=== PATIENT | male | born 1995 | race Asian ===

== ENCOUNTER → 2017-02-05 | Outpatient (CLI) | payer BC ==
--- NOTE | 2017-02-05 11:02 | DIAGNOSTIC IMAGING REPORT ---
CERVICAL SPINE 4 OR 5 VIEWS CLINICAL HISTORY: Neck pain. History of prior trauma. COMPARISON STUDY: No previous studies for comparison. FINDINGS: The prevertebral soft tissues are normal. No fractures or subluxations are visualized. There is a cervical dextroscoliosis. IMPRESSION: Mild dextroscoliosis. No fractures or subluxations are visualized. Electronically signed by: Carlitos Holly M.D. 02/05/2017 11:01 AM Dictated Date/Time: 02/05/2017 11:00 AM
== END | disposition home or self-care (01) ==
LOC: C.RDSM 10:32
PROVIDERS: ATTEND Family Medicine
DX: M54.2 Cervicalgia (principal)

== ENCOUNTER 2018-02-09 05:52 | Inpatient (IN) | payer BC, OTHER ==
[2018-01-22 13:54] VITALS: Ht 180.3 cm; Wt 83.1 kg
[2018-02-09] VITALS (7 sets, daily range): BP systolic 122–147; BP diastolic 62–88; PULSE 51–70; TEMP 36.2–36.9; O2SAT 94–99
[~2018-02-09] VITALS: Ht 180.3 cm; Wt 83.1 kg
[~2018-02-09 05:52] MED LIST: FLUT0.15 INTNAS
[2018-02-09] MEDS ORDERED: DEXAMETHASONE SOD INJ 4 MG/ML VIAL IV SCH (06:00)
[2018-02-09] MEDS ORDERED: CLINDAMYCIN 600 MG/54 ML D5W IV SCH (06:00)
[2018-02-09] MEDS ORDERED: LACTATED RINGER'S 1000ML 1,000 ML IV SCH (06:00)
--- NOTE | 2018-02-09 06:06 | History & Physical Bridge Note ---
H&P Re-Evaluation Bridge Note: I have examined the patient, reviewed the History & Physical and in the interval since the performance of the History & Physical I have noted the following changes of clinical significance: No changes noted
[2018-02-09] MEDS ORDERED: OXYMETAZOLINE HCL 0.05% NA SPR 15 ML BTL ONE (06:54)
[2018-02-09] MEDS ORDERED: LIDOCAINE HCL 2% JELLY 30 ML TUBE ONE (06:55)
[2018-02-09] MEDS ORDERED: CHLORHEXIDINE GLUCONATE 0.12% 480 ML MT ONE (07:00)
[2018-02-09] MEDS ORDERED: SCOPOLAMINE 1.5 MG TDSY TD SCH (07:00)
[2018-02-09] MEDS ORDERED: BUPIVACAINE/EPINEPHRINE 0.5% 1:200,000 1.8 ML CARP ONE (07:01)
[2018-02-09] MEDS ORDERED: TRIAMCINOLONE ACET 0.1% OINT 15 GM TUBE ONE (07:01)
[2018-02-09] MEDS ORDERED: SCOPOLAMINE 1.5 MG TDSY TD ONE (07:02)
[2018-02-09] MEDS ORDERED: FENTANYL CITRATE INJ 50 MCG/1 ML 2 ML VIAL ONE ×2 (07:07→08:24)
[2018-02-09] MEDS ORDERED: MIDAZOLAM HCL 1 MG/ML 2ML VIAL ONE (07:07)
[2018-02-09] MEDS ORDERED: PROMETHAZINE HCL INJ 12.5 MG in SODIUM CHLORIDE 0.9% 50ML 50 ML IV PRN (07:15)
[2018-02-09] MEDS ORDERED: HYDROmorphone INJ 0.5 MG/0.5 ML SYR IV PRN (07:15)
[2018-02-09] MEDS ORDERED: FENTANYL CITRATE INJ 50 MCG/1 ML 2 ML VIAL IV PRN (07:15)
[2018-02-09] MEDS ORDERED: EpHEDrine SULFATE INJ 50 MG/ML AMP IV PRN (07:15)
[2018-02-09] MEDS ORDERED: ONDANSETRON INJ 2 MG/ML 2 ML VIAL IV PRN ×2 (07:15→09:15)
[2018-02-09] MEDS ORDERED: ATROPINE SULFATE 0.1 MG/ML 5ML SYR IV PRN (07:15)
[2018-02-09] MEDS ORDERED: LIDOCAINE 4% INH SOLN 4 ML BTL ONE (07:27)
[2018-02-09] MEDS ORDERED: HYDROmorphone INJ 2 MG/ML SYR/VIAL ONE (07:32)
[2018-02-09] MEDS ORDERED: LIDOCAINE HCL 2% 2 ML VIAL (20MG/ML) ONE (07:45)
[2018-02-09] MEDS ORDERED: ROCURONIUM BROMIDE 10 MG/ML 5 ML VIAL ONE (07:45)
[2018-02-09] MEDS ORDERED: ONDANSETRON INJ 2 MG/ML 2 ML VIAL ONE (07:45)
[2018-02-09] MEDS ORDERED: PROPOFOL IV EMULSION 10 MG/ML 20 ML VIAL ONE (07:45)
--- NOTE | 2018-02-09 09:09 | [facility] Operative Report ---
Operative Report Operative Date February 09, 2018. 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 Description of Procedure After intubation and a sterile prep and drape the oral cavity was suctioned. Local anesthesia administered. The typical upper buccal sulcus incision was made and the maxilla exposed. A LeFort I osteotomy was completed and downfractured. The maxilla was advanced and plated securly in its new position. Closure was completed with 3-0 vicryl in the hyacinth-nasal musculature and 4-0 gut in the mucosa. I attest to the content of the Intraoperative Record and any orders documented therein. Any exceptions are noted below.
[2018-02-09] MEDS ORDERED: ACETAMINOPHEN/HYDROCODONE ELIX 15 ML/CUP UDP PO PRN (09:15)
[2018-02-09] MEDS ORDERED: SODIUM CHLORIDE 0.65% NA SOLN 45 ML (OCEAN) PRN (09:15)
[2018-02-09] MEDS ORDERED: ACETAMINOPHEN SOLN 650MG/20.3 ML UDC PO PRN (09:15)
[2018-02-09] MEDS ORDERED: MoRPHine SULFATE 4 MG/ML 1 ML CARP\\VIAL IV PRN ×2 (09:15)
--- NOTE | 2018-02-09 09:17 | Discharge Instructions ---
Discharge Instructions Date of Service February 09, 2018. 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 Instructions / Follow-Up Instructions / Follow-Up Very soft diet, rinse mouth gently with salt water 3-4 times a day. Saline nasal spray as needed for nasal congestion. Blow nose very gently. OK to drive once off of prescription pain meds. Take post op meds as prescribed ( start Z nissa this evening, ibuprofen for pain, hydrocodone for increased pain - prescriptions already filled). Current Hospital Diet Patient's current hospital diet: Clear Liquid Diet Discharge Diet Recommended Diet: Full Liquid Diet Procedures Procedures Performed: Maxillary Lefort I Osteotomy Pending Studies Studies pending at discharge: no Medical Emergencies . Who to Call and When: Medical Emergencies: If at any time you feel your situation is an emergency, please call 911 immediately. . Non-Emergent Contact Non-Emergency issues call your: Surgeon Call Non-Emergent contact if: temperature is above 101, your pain is not controlled, wound has increased drainage, wound has increased redness, wound has increased pain Contact Dr. Diaz at the office [phone] or directly at [phone] Follow up appointment as scheduled. . "Provider Documentation" section prepared by Matthew Diaz. . [place] Drug Monitoring Program Search Results: no issues identified
--- NOTE | 2018-02-09 09:51 | OPERATIVE REPORT ---
DATE OF OPERATION: 02/09/2018 PREOPERATIVE DIAGNOSIS: Maxillary hypoplasia with resulting malocclusion. POSTOPERATIVE DIAGNOSIS: Same. PROCEDURE: LeFort I osteotomy for advancement with rigid internal fixation. SURGEON: Matthew Diaz DDS STICKER MACHINE OPERATOR: Steph Ochoa CNP ANESTHESIA: General nasal endotracheal intubation. ESTIMATED BLOOD LOSS: 150 mL. DRAINS: None. SPECIMENS: None. COMPLICATIONS: None. INDICATIONS: Brayden is a 22-year-old man I know well who has a developmental deformity of his maxilla resulting in a class 3 skeletal and dental malocclusion. This is a severe malocclusion resulting in difficulty eating and an excessive force on the structures of the temporomandibular joints. He has had a full skeletal workup as well as orthodontic management and is now ready to have definitive correction with LeFort I maxillary advancement. I have reviewed with him and his mother the indicated procedures, the alternatives, the risks and benefits and potential complications, and he has signed an informed consent. He has also had a routine preanesthesia evaluation. He is felt to be a good candidate for the surgery. DESCRIPTION OF PROCEDURE: Patient was taken to the operating room and placed supine on the operating room table. Routine anesthesia monitors were applied. Anesthesia was induced and endotracheal intubation was performed. The eyes were lubed and taped. The endotracheal tube was secured including a stitch at the columella and a sterile prep and drape was performed. A timeout was taken and then the oral cavity was entered. I irrigated it with chlorhexidine solution and used four 1.8 mL carpules of 0.5% Marcaine with 1:200,000 epinephrine as bilateral posterior superior alveolar nerve blocks and bilateral infraorbital nerve blocks. The typical upper buccal sulcus incision was then made with the needle tip electrocautery and the anterior maxilla was degloved. I placed 4 IMF screws between the premolars, one in each quadrant. We used a reciprocating saw to complete the Le Fort I osteotomy protecting the nasal mucosa. I then used curved osteotome to separate the pterygoid plates from the maxilla, a straight osteotome to separate the nasal septum from the crest of the maxilla, and a guarded osteotome to complete the osteotomies in the lateral nasal wall. The maxilla was then easily downfractured and areas of interfering bone were removed with the rongeurs. We then advanced the maxilla approximately 6 mm into the prefabricated surgical stent and used the IMF screws to wire him into that class 1 occlusion. With the maxilla stably affixed to the mandible in the right position, the mandible was rotated into a closed position ensuring that the condyle stayed seated in the fossa and ensured that there was good bone contact across the maxilla and then used four 2.0 Synthes plates and screws to fix the maxilla in its new position. The IMF was released and the patient's occlusion was verified. We then irrigated the wounds. I used a 3-0 Vicryl as piriform cinch suture, about a 10 mm V-Y advancement in the anterior labial mucosa, and then closed the upper buccal sulcus incision with 4-0 gut. The patient was suctioned free. Stomach was emptied with an orogastric tube and patient was turned over to anesthesia, extubated in the operating room, and transferred to the recovery area in stable condition. At the end of the procedure, all counts were correct. I attest to the content of the Intraoperative Record and any orders documented therein. Any exception s are noted below.
--- NOTE | 2018-02-09 10:13 | Anesthesiology Progress Note ---
Anesthesia Post Op Note Date & Time February 09, 2018 at 10:13 Vital Signs Pain Intensity: 0 Vital Signs Past 12 Hours Date Time Temp Pulse Resp B/P (MAP) Pulse Ox O2 Delivery O2 Flow Rate FiO2 02/09/18 10:00 60 12 143/69 93 Room Air 02/09/18 09:50 60 12 146/73 98 Oxymask 10 02/09/18 09:40 58 12 146/74 96 Oxymask 10 02/09/18 09:31 36 60 16 152/75 98 Oxymask 10 02/09/18 06:13 36.9 51 18 140/88 (105) 99 Room Air Notes Mental Status: alert / awake / arousable, participated in evaluation Pt Amnestic to Procedure: Yes Nausea / Vomiting: adequately controlled Pain: adequately controlled Airway Patency, RR, SpO2: stable & adequate BP & HR: stable & adequate Hydration State: stable & adequate Anesthetic Complications: no major complications apparent
[2018-02-09] MEDS ORDERED: GLYCOPYRROLATE INJ 0.2 MG/ML VIAL ONE (11:11)
[2018-02-09] MEDS ORDERED: NEOSTIGMINE METHYLSULFATE 5 MG/5 ML SYR ONE (11:11)
[2018-02-09] MEDS ORDERED: KETOROLAC TROMETHAMINE 30 MG/ML VIAL IV. SCH (12:00)
[2018-02-09] MEDS ORDERED: CHECK SCOPOLAMINE PATCH PLACEMENT SCH (16:00)
[2018-02-09] MEDS ORDERED: TRIAMCINOLONE ACET 0.1% OINT 15 GM TUBE EXT SCH (21:00)
== END 2018-02-09 16:00 | disposition home or self-care (01) | DRG 132 ==
LOC: C.ACU 05:52 → C.MSW 09:56 → ENRESERV 10:06
PROVIDERS: ADMIT Dentist Oral and Maxillofacial Pathology; ATTEND Dentist Oral and Maxillofacial Pathology
PROC: 0NSR04Z Reposition Maxilla with Internal Fixation Device, Open Approach (ICD-10-PCS; principal; 2018-02-09 07:15)
DX: M26.02 Maxillary hypoplasia (principal); M26.213 Malocclusion, Angle's class III; M26.623 Arthralgia of bilateral temporomandibular joint; Z88.0 Allergy status to penicillin